=== PATIENT | female | born 1960 | race Caucasian/White ===

== ENCOUNTER 2018-02-09 19:20 | Emergency (ER) | payer MEDICARE, OTHER ==
[2018-02-09 19:46] VITALS: RESP 18; TEMP 96
[2018-02-09] MEDS ORDERED: ACETAMI/HYDROCO 325/10 TAB PO ONE (20:35)
[2018-02-09] MEDS ORDERED: APAP/HYDROCODONE 1 EACH TABLET PO PRN (20:52)
[2018-02-09 21:25] VITALS: BP 138/67; PULSE 86; O2SAT 99
== END 2018-02-09 20:55 | disposition home or self-care (01) | DRG 159 ==
LOC: ED 19:20
DX: M26.622 Arthralgia of left temporomandibular joint (principal)
CPT/HCPCS: 99282; A9270-GY